=== PATIENT | male | born 1980 | race Caucasian/White ===

== ENCOUNTER 2018-11-25 13:37 | Emergency (ER) | payer OTHER, SELFPAY ==
[2018-11-25 13:40] VITALS: BP 121/75; PULSE 70; RESP 22; TEMP 36.7; O2SAT 100
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
[2018-11-25] MEDS: TRAMADOL 50 MG TABLET 100 MG PO (15:41)
[2018-11-25] MEDS: ACETAMINOPHEN 325 MG TABLET 650 MG PO (15:41)
[2018-11-25 16:01] VITALS: BP 114/80; PULSE 54; RESP 16; TEMP 36.6; O2SAT 100
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
== END 2018-11-25 16:08 | disposition home or self-care (01) ==
PROVIDERS: Emergency Provider Emergency Medicine
DX: S22.32XA Fracture of one rib, left side, initial encounter for closed fracture (principal); W19.XXXA Unspecified fall, initial encounter
CPT/HCPCS: 71101; 99282; 99283

== ENCOUNTER 2019-08-26 18:47 | Emergency (ER) | payer OTHER, SELFPAY ==
[2019-08-26 18:58] VITALS: BP 133/84; PULSE 67; RESP 16; TEMP 36.7; O2SAT 96; BMI 31.0
--- NOTE | 2019-08-26 19:57 | ED_ITS ---
HPI - Head Injury General Chief complaint: Head Injury Stated complaint: head injury Time Seen by Provider: 08/26/19 19:57 Source: patient Mode of arrival: Ambulatory Limitations: no limitations History of Present Illness HPI Narrative: 38-year-old male nonsmoker without pertinent past medical history presents with a head injury suffered a few hours ago. He stood up quickly and hit his head on a steel bar. He denies any loss of consciousness nor focal neurologic findings. He denies any neck or back pain. He is not take blood thinners and denies the use of alcohol or street drugs. He is nauseated but denies any vomiting. He denies any other injury. He does have some mild headache. His states he is acting at baseline. He suffered a superficial abrasion on the top of his head which is no longer bleeding. MD Complaint: head injury Onset (ago): hour(s) Mechanism of Injury: other Place: home Loss of Consciousness: no Location of injury: parietal Severity: mild Quality: aching Radiation: none Other Injuries: none Associated symptoms: nausea Related Data Previous Rx's Medication Instructions Recorded tramadol [Ultram] 100 mg PO Q6H PRN #30 tab 11/25/18 Allergies Allergy/AdvReac Type Severity Reaction Status Date / Time terbinafine [From LAMISIL] Allergy Intermediate Verified 08/26/19 18:58 Review of Systems Constitutional Constitutional: Denies chills, Denies fatigue, Denies fever(s), Denies frequent falls, Reports headache(s), Denies lethargy and Denies weakness Eyes Eyes: Denies change in vision, Denies eye discharge, Denies irritation and Denies loss of vision ENT Ears, Nose, Mouth, and Throat: Denies change in voice, Denies dizziness, Reports headache(s), Denies neck pain, Denies sore throat and Denies throat swelling Cardiovascular Cardiovascular: Denies chest pain, Denies irregular heart rhythm, Denies lightheadedness, Denies palpitations, Denies dyspnea, Denies dyspnea on exertion and Denies orthopnea Respiratory Respiratory: Denies cough, Denies dyspnea, Denies dyspnea on exertion and Denies wheezing Gastrointestinal Gastrointestinal: Denies abdominal pain, Denies change in bowel habits, Denies diarrhea, Denies nausea and Denies vomiting Genitourinary Genitourinary: Denies hematuria, Denies flank pain, Denies urinary incontinence and Denies urinary urgency Musculoskeletal Musculoskeletal: Denies back pain, Denies muscle weakness, Denies neck pain, Denies numbness and Denies tingling Integumentary/Breasts Skin/Breast: Denies pruritus, Denies erythema, Denies rash and Reports wounds Neurologic Neurologic: Denies behavioral changes, Denies confusion, Denies dizziness, Denies frequent falls, Reports headache(s), Denies loss of vision, Denies numbness, Denies tingling and Denies weakness Psychiatric Psychiatric: Denies anxiety, Denies behavioral changes, Denies confusion, Denies depression, Denies homicidal ideation and Denies suicidal ideation Endocrine Endocrine: Denies fatigue, Denies flushing and Denies palpitations Hematologic/Lymphatic Hematologic/Lymphatic: Denies easy bruising Allergic/Immunologic Allergic/Immunologic: Denies urticaria, Denies throat swelling and Denies wheezing Patient History Medical History Healthy adult (Acute) Surgical History No pertinent past surgical history (Acute) Social History Smoking Status: Never smoker Smoking Status: Never smoker Exam Narrative Exam Narrative: GENERAL: [38] year old patient appears stated age. Well- nourished, well-developed patient, in mild distress. GCS 15 HEAD: Superficial abrasion, no bleeding. No evidence of depressed skull fracture. EYES: Pupils equal round and reactive. Extraocular motions intact. No scleral icterus. No injection or drainage. ENT: Nose without bleeding, purulent drainage. Throat without erythema, tonsillar hypertrophy or exudate. Airway patent. NECK: Trachea midline. Non tender CARDIOVASCULAR: Regular rate and rhythm without murmurs, gallops, or rubs. RESPIRATORY: Clear to auscultation. Breath sounds equal bilaterally. No wheezes, rales, or rhonchi. GASTROINTESTINAL: Abdomen soft, non-tender, nondistended. EXTREMITIES: No edema or joint tenderness. BACK: Nontender without deformity or crepitance. No flank tenderness. NEURO: AOx3. SKIN: No rash or erythema of visible areas Initial Vital Signs Initial Vital Signs: Vital Signs Temperature 98.0 F 08/26/19 18:58 Pulse Rate 67 08/26/19 18:58 Respiratory Rate 16 08/26/19 18:58 Blood Pressure 133/84 08/26/19 18:58 Pulse Oximetry 96 08/26/19 18:58 Course Course Course Narrative: [place] CT Head Injury/Trauma Rule from [employer] on 08/27/2019 All calculations should be rechecked by clinician prior to use RESULT SUMMARY: CT Unnecessary The [place] Head CT Rule suggests a head CT is not necessary for this patient (sensitivity 83-100% for all intracranial traumatic findings, sensitivity 100% for findings requiring neurosurgical intervention). INPUTS: Age ?> 0 = No Patient on blood thinners ?> 0 = No Seizure after injury ?> 0 = No GCS ?> 0 = No Suspected open or depressed skull fracture ?> 0 = No Any sign of basilar skull fracture? ?> 0 = No ?2 episodes of vomiting ?> 0 = No Age ?63 years ?> 0 = No Retrograde amnesia to the event ? 30 minutes ?> 0 = No ?Dangerous? mechanism? ?> 0 = No Vital Signs Vital signs: Vital Signs - 8 hr 08/26/19 18:58 Temperature 98.0 F Pulse Rate 67 Respiratory Rate 16 Blood Pressure 133/84 Pulse Oximetry 96 Discharge Plan Departure Patient Disposition: Home Clinical Impression: Concussion without loss of consciousness Qualifiers: Encounter type: initial encounter Qualified Code(s): S06.0X0A - Concussion without loss of consciousness, initial encounter Discharge Date/Time: 08/26/19 20:12 Instructions: Concussion Activity Restrictions/Additional Instructions: You have a slight concussion and will likely have a mild headache and some nausea for a few days. Avoiding highly stimulating activities and even TV or computers may be helpful in minimizing your symptoms. Avoid activities that will put you at risk for another head injury for at least a week. You can take tylenol or motrin for headache. Return for worsening or persistent symptoms Prescriptions: No Action tramadol [Ultram] 50 mg tablet 100 mg PO Q6H PRN (Reason: pain) Qty: 30 RF: 0 Stand Alone Forms: Work Release Note
== END 2019-08-26 20:12 | disposition home or self-care (01) ==
PROVIDERS: Emergency Provider Emergency Medicine
DX: S06.0X0A Concussion without loss of consciousness, initial encounter (principal); W22.8XXA Striking against or struck by other objects, initial encounter
CPT/HCPCS: 99281

== ENCOUNTER 2020-03-14 21:17 | Emergency (ER) | payer OTHER, SELFPAY ==
[2020-03-14 21:28] VITALS: BP 135/82; PULSE 60; RESP 18; TEMP 36.6; O2SAT 98
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
[2020-03-14] MEDS: KETOROLAC 60 MG/2 ML VIAL 30 MG IM (21:50)
[2020-03-14] MEDS: CYCLOBENZAPRINE 10 MG PREPACK 1 BOTTLE MISC (21:50)
[2020-03-14] MEDS: HYDROCODONE/ACET 5/325 PREPACK 1 BOTTLE MISC (21:50)
== END 2020-03-14 22:35 | disposition home or self-care (01) ==
PROVIDERS: Emergency Provider Emergency Medicine
DX: S39.012A Strain of muscle, fascia and tendon of lower back, initial encounter (principal)
CPT/HCPCS: 96372; 99283; J1885

== ENCOUNTER 2020-04-17 17:38 | Emergency (ER) | payer OTHER, SELFPAY ==
[2020-04-17 17:44] VITALS: BP 140/93; PULSE 71; RESP 20; TEMP 36.4; O2SAT 100
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
[2020-04-17] MEDS: KETOROLAC 60 MG/2 ML VIAL 30 MG IM (18:31)
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
== END 2020-04-17 18:42 | disposition home or self-care (01) ==
PROVIDERS: Emergency Provider Nurse Practitioner
DX: S63.501A Unspecified sprain of right wrist, initial encounter (principal); S66.911A Strain of unspecified muscle, fascia and tendon at wrist and hand level, right hand, initial encounter
CPT/HCPCS: 73110; 96372; 99283; 99284; J1885

== ENCOUNTER 2020-10-15 13:19 | Emergency (ER) | payer OTHER, SELFPAY ==
[2020-10-15 13:26] VITALS: BP 156/92; PULSE 68; RESP 20; TEMP 36.4; O2SAT 99
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
[2020-10-15] MEDS: KETOROLAC 60 MG/2 ML VIAL 15 MG IV (15:00)
[2020-10-15 15:09] VITALS: BP 135/67; PULSE 65; RESP 20; O2SAT 99
== END 2020-10-15 15:09 | disposition home or self-care (01) ==
PROVIDERS: Emergency Provider Emergency Medicine
DX: S30.1XXA Contusion of abdominal wall, initial encounter (principal); V84.9XXA Unspecified occupant of special agricultural vehicle injured in nontraffic accident, initial encounter
CPT/HCPCS: 71260; 74177; 96374; 99284; J1885; Q9967

== ENCOUNTER 2021-07-17 08:17 | Emergency (ER) | payer OTHER, SELFPAY ==
[2021-07-17 08:20] VITALS: BP 116/62; PULSE 96; RESP 16; TEMP 37.7; O2SAT 96; BMI 31.3
--- NOTE | 2021-07-17 08:37 | ED.NAVMDI ---
HPI - Nausea/Vomiting/Diarrhea General Chief complaint: Nausea/Vomiting/Diarrhea Stated complaint: N/V/D, Trouble using right leg Time Seen by Provider: 07/17/21 08:25 Source: patient Mode of arrival: Ambulatory History of Present Illness HPI Narrative: 40-year-old gentleman with no significant medical issues presents with 24 hours of vomiting and diarrhea with diarrhea continuing. Had intermittent episodes with stomach issues for the last number of months and is wondering if she may be lactose intolerance. Did a little bit better with a couple days avoiding lactose in yesterday had a bowl of cereal with symptoms worsening. He also complains of pain in the lower extremities and when pressed on this it is joint pain bilaterally knees ankles. Also notes hip pain right greater than left has some chronic upper extremity issues with a chronic shoulder issue on the left and pain in that shoulder wrist and hand. Does note occasional pain in hands and toes. Has no family history for rheumatologic diagnoses. He has no specific skin changes or concerns that might suggest developing psoriasis. He describes no fevers, cough, chills. He has not been specifically gaining or losing weight, he is not having night sweats. He denies significant constipation. No chronic headaches no particularly dry skin or dry mouth or eyes. Related Data Previous Rx's Medication Instructions Recorded tramadol 50 mg tablet (Ultram) 100 mg PO Q6H PRN #30 tab 11/25/18 cyclobenzaprine 10 mg tablet 10 mg PO TID PRN #20 tab 03/14/20 hydrocodone 5 mg-acetaminophen 325 1 tab PO Q4-6H PRN #10 tab 03/14/20 mg tablet ([place]aines) Allergies Allergy/AdvReac Type Severity Reaction Status Date / Time terbinafine [From LAMISIL] Allergy Intermediate Verified 07/17/21 08:26 Review of Systems Review of Systems Narrative: Remainder of complete review of systems is otherwise unremarkable except for that included in the HPI. Patient History Medical History (Updated 07/17/21 @ 12:54 by Smiley Cota MD) Healthy adult Surgical History No pertinent past surgical history Social History Smoking Status: Never smoker Smoking Status: Never smoker alcohol intake frequency: holidays/special occasions only Substance Use Type: does not use Exam Narrative Exam Narrative: General: Healthy appearing, in no acute distress. Able to give a complete and coherent history. Well-nourished well-developed HEENT: Moist mucous membranes, normal sclera with reactive pupils, Neck: No JVD, supple Respiratory: Lungs are clear to auscultation, no wheezing no rales no rhonchi. Full and symmetrical air movement Cardiac: Regular rate and rhythm no murmurs no bruits Abdomen: Soft, mild diffuse tenderness without rebound or guarding, good bowel tones, no flank pain Skin: Warm and dry, no rashes Neurologic: Grossly neurologically intact with no obvious asymmetries or abnormalities Extremities: No trauma, well perfused. No active synovitis. Mild discomfort with manipulation of knees, ankles, right shoulder, left elbow. No hand pain noted today Psych: Cooperative, appropriate insight and affect Initial Vital Signs Initial Vital Signs: Vital Signs Temperature 99.8 F H 07/17/21 08:20 Pulse Rate 96 H 07/17/21 08:20 Respiratory Rate 16 07/17/21 08:20 Blood Pressure 116/62 07/17/21 08:20 Pulse Oximetry 96 07/17/21 08:20 Course Orders Ordered: ED Orders 07/17/21 09:35 CRP [C-Reactive Protein Quant] Stat Erythrocyte Sedimentation Rate Stat Tissue Transglutaminase IgA Routine Tissue Transglutaminase IgG Routine 07/17/21 09:36 Complete Blood Count AUTO DIFF Stat Comprehensive Metabolic Panel Stat Lipase Stat Magnesium Stat Procalcitonin Stat Discontinued Medications Sodium Chloride (Normal Saline 0.9%) 1,000 mls @ 1,000 mls/hr IV BOLUS ONE Stop: 07/17/21 10:34 Last Infusion: 07/17/21 12:12 Dose: 0 mls/hr Documented by: Admin: 07/17/21 10:06 Dose: 1,000 mls/hr Documented by: LADARIUS Ketorolac Tromethamine (Ketorolac 30 Mg/Ml Vial) 15 mg IV NOW ONE Stop: 07/17/21 09:36 Last Admin: 07/17/21 10:07 Dose: 15 mg Documented by: LADARIUS Ondansetron HCl (Ondansetron 4 Mg/2 Ml Inj) 4 mg IV NOW ONE Stop: 07/17/21 09:36 Last Admin: 07/17/21 10:06 Dose: 4 mg Documented by: LADARIUS Vital Signs Vital signs: Vital Signs - 8 hr 07/17/21 08:20 07/17/21 11:44 Temperature 99.8 F H Pulse Rate 96 H 79 Respiratory Rate 16 Blood Pressure 116/62 94/57 L Pulse Oximetry 96 97 MDM - Nausea/Vomiting/Diarrhea Lab Data Result diagrams: 07/17/21 09:36 07/17/21 09:36 Labs: Lab Results 07/17/21 07/17/21 07/17/21 Range/Units 09:35 09:35 09:36 WBC 6.2 (4.5-11.0) X10^3/uL RBC 4.76 (4.5-5.9) X10^6/uL Hgb 14.2 (13.5-17.5) g/dL Hct 41.0 (41-53) % MCV 86.2 (80-100) fL MCH 29.8 (26-34) PG MCHC 34.6 (30-36) % RDW 13.3 (11.6-14.8) % Plt Count 108 L (150-400) X10^3/uL Neut % (Auto) 84.9 H (50-75) % Lymph % (Auto) 5.9 L (25-40) % [place] % (Auto) 7.5 (3-14) % Eos % (Auto) 1.5 L (2-4) % Baso % (Auto) 0.2 (0-2) % Neut # (Auto) 5200 (2251-9535) /uL Lymph # (Auto) 400 L (3837-2921) /uL [place] # (Auto) 500 (0-900) /uL Eos # (Auto) 100 (0-450) /uL Baso # (Auto) 0 (0-100) /uL ESR 5 (0-15) MM/HR Sodium (137-145) mmol/L Potassium (3.4-5.1) mmol/L Chloride (98-107) mmol/L Carbon Dioxide (22-32) mmol/L BUN (9-20) mg/dL Creatinine (0.66-1.25) mg/dL Estimated GFR (>60) mL/min BUN/Creatinine Ratio (6-22) Glucose (70-100) mg/dL Calcium (8.4-10.2) mg/dL Magnesium (1.6-2.3) mg/dL Total Bilirubin (0.2-1.3) mg/dL AST (17-59) IU/L ALT (<50) IU/L Alkaline Phosphatase (38-126) U/L C-Reactive Protein 2.4 H (<1.0) mg/dL Total Protein (6.3-8.2) g/dL Albumin (3.5-5.0) g/dL Globulin (1.7-4.1) g/dL Albumin/Globulin Ratio (1.0-2.8) Lipase (23-300) U/L Procalcitonin (<0.5) ng/mL 07/17/21 Range/Units 09:36 WBC (4.5-11.0) X10^3/uL RBC (4.5-5.9) X10^6/uL Hgb (13.5-17.5) g/dL Hct (41-53) % MCV (80-100) fL MCH (26-34) PG MCHC (30-36) % RDW (11.6-14.8) % Plt Count (150-400) X10^3/uL Neut % (Auto) (50-75) % Lymph % (Auto) (25-40) % [place] % (Auto) (3-14) % Eos % (Auto) (2-4) % Baso % (Auto) (0-2) % Neut # (Auto) (6451-7715) /uL Lymph # (Auto) (4250-6013) /uL [place] # (Auto) (0-900) /uL Eos # (Auto) (0-450) /uL Baso # (Auto) (0-100) /uL ESR (0-15) MM/HR Sodium 136 L (137-145) mmol/L Potassium 3.8 (3.4-5.1) mmol/L Chloride 105 (98-107) mmol/L Carbon Dioxide 25 (22-32) mmol/L BUN 14 (9-20) mg/dL Creatinine 0.90 (0.66-1.25) mg/dL Estimated GFR > 60.0 (>60) mL/min BUN/Creatinine Ratio 15.6 (6-22) Glucose 111 H (70-100) mg/dL Calcium 8.5 (8.4-10.2) mg/dL Magnesium 1.9 (1.6-2.3) mg/dL Total Bilirubin 0.8 (0.2-1.3) mg/dL AST 31 (17-59) IU/L ALT 44 (<50) IU/L Alkaline Phosphatase 53 (38-126) U/L C-Reactive Protein (<1.0) mg/dL Total Protein 7.1 (6.3-8.2) g/dL Albumin 4.3 (3.5-5.0) g/dL Globulin 2.8 (1.7-4.1) g/dL Albumin/Globulin Ratio 1.5 (1.0-2.8) Lipase 59 (23-300) U/L Procalcitonin 0.36 (<0.5) ng/mL MDM Narrative Medical decision making narrative: Otherwise healthy 40-year-old gentleman with interesting complaints. Will begin workup and addresses acute nausea and vomiting pulmonary if he may have some type of autoimmune arthropathy developing possibility of rheumatoid arthritis, psoriatic arthritis, celiac disease are all possible. Will re-evaluate after blood work returns and fluid resuscitation. Lab work is reassuring. No dramatic electrolyte abnormalities or acute kidney injury with the diarrhea that he is currently experiencing. His C reactive protein is slightly elevated and this may be because of a viral etiology for the diarrhea however in light of the arthropathy possibility of an inflammatory arthropathy is certainly entertained. Antinuclear antibodies and immunoglobulins looking for celiac sprue are pending. Will ask him to follow-up with his primary care physician. At this point he is safe for home discharge Discharge Plan Departure Patient Disposition: Home Clinical Impression: Vomiting and diarrhea, Arthropathy Instructions: DI for Vomiting -- Adult Activity Restrictions/Additional Instructions: Thank you for coming in today Your labs are actually very reassuring. There is no evidence of significant electrolyte abnormalities, kidney function or liver function problems. I did not find any suggestion of acute infections Regarding the joint pain that you are having, the possibility of an inflammatory type arthritis needs to be further investigated. We did a nonspecific test in the emergency department called a CRP. This tests measures overall inflammation in your body. If your current vomiting and diarrhea is because of a low-grade virus effect explained the finding however this is also elevated with some of the reactive arthropathies. Some of the testing for rheumatoid arthritis as well as celiac sprue will take a number of days to come back. Please ask your primary care doctor to check on those labs. Please schedule an appointment with your primary care doctor for additional follow-up and if you are worse feel free to return to the emergency department Prescriptions: No Action tramadol [Ultram] 50 mg tablet 100 mg PO Q6H PRN (Reason: pain) Qty: 30 0RF cyclobenzaprine 10 mg tablet 10 mg PO TID PRN (Reason: muscle spasm) Qty: 20 0RF hydrocodone-acetaminophen [Gaines] 5-325 mg tablet 1 tab PO Q4-6H PRN (Reason: pain) Qty: 10 0RF
[2021-07-17] MEDS: SODIUM CHLORIDE 0.9% 1,000 ML 1000 ML IV (10:06)
[2021-07-17] MEDS: ONDANSETRON 4 MG/2 ML INJ IV (10:06)
[2021-07-17] MEDS: KETOROLAC 30 MG/ML VIAL 15 MG IV (10:07)
[2021-07-17 10:08] LABS: Add Manual Diff / Slide Review NO; Basophils Absolute Auto 0 /uL (0-100); Basophils Percent Auto 0.2 % (0-2); Eosinophils Absolute Auto 100 /uL (0-450); Eosinophils Percent Auto 1.5 % (2-4); Hemoglobin 14.2 g/dL (13.5-17.5); Lymphocytes Absolute Auto 400 /uL (1100-4500); Lymphocytes Percent Auto 5.9 % (25-40); Mean Corpuscular HGB Conc 34.6 % (30-36); Mean Corpuscular Hemoglobin 29.8 PG (26-34); Mean Corpuscular Volume 86.2 fL (80-100); Monocytes Absolute Auto 500 /uL (0-900); Monocytes Percent Auto 7.5 % (3-14); Neutrophils Absolute Auto 5200 /uL (1500-7000); Neutrophils Percent Auto 84.9 % (50-75); Platelet Count 108 X10^3/uL (150-400); Red Blood Cell Count 4.76 X10^6/uL (4.5-5.9); Red Cell Distribution Width 13.3 % (11.6-14.8); White Blood Cell Count 6.2 X10^3/uL (4.5-11.0)
[2021-07-17 10:23] LABS: Alanine Aminotransferase 44 IU/L (<50); Albumin 4.3 g/dL (3.5-5.0); Albumin Globulin Ratio 1.5 (1.0-2.8); Alkaline Phosphatase 53 U/L (38-126); Aspartate Aminotransferase 31 IU/L (17-59); BUN Creatinine Ratio 15.6 (6-22); Bilirubin Total 0.8 mg/dL (0.2-1.3); Blood Urea Nitrogen 14 mg/dL (9-20); Calcium 8.5 mg/dL (8.4-10.2); Carbon Dioxide 25 mmol/L (22-32); Chloride 105 mmol/L (98-107); Estimated Glomerular Filt Rate > 60.0 mL/min (>60); Globulin 2.8 g/dL (1.7-4.1); Glucose 111 mg/dL (70-100); HEMOLYSIS < 15 (0-50); Lipase 59 U/L (23-300); Magnesium 1.9 mg/dL (1.6-2.3); Potassium 3.8 mmol/L (3.4-5.1); Sodium 136 mmol/L (137-145); Total Protein 7.1 g/dL (6.3-8.2)
[2021-07-17 10:29] LABS: Erythrocyte Sedimentation Rate 5 MM/HR (0-15)
[2021-07-17 10:31] LABS: C-Reactive Protein Quant 2.4 mg/dL (<1.0)
[2021-07-17 10:39] LABS: Procalcitonin 0.36 ng/mL (<0.5)
[2021-07-17 11:44] VITALS: BP 94/57; PULSE 79; O2SAT 97
[2021-07-18 16:36] LABS: Tissue Transglutaminase IgA <2 U/mL (0-3); Tissue Transglutaminase IgG 3 U/mL (0-5)
[2021-07-19 17:51] LABS: ANA Screen, IFA Positive (.)
== END 2021-07-17 13:03 | disposition home or self-care (01) ==
PROVIDERS: Emergency Provider Emergency Medicine
DX: R11.2 Nausea with vomiting, unspecified (principal); R19.7 Diarrhea, unspecified; M12.9 Arthropathy, unspecified
CPT/HCPCS: 36415; 80053; 83516; 83690; 83735; 84145; 85025; 85651; 86038; 86140; 96361; 96374; 96375; 99284; J1885; J2405

== ENCOUNTER 2022-02-21 20:44 | Emergency (ER) | payer OTHER, SELFPAY ==
[2022-02-21 20:54] VITALS: BP 150/85; PULSE 65; RESP 18; TEMP 36.6; O2SAT 99; BMI 31.3
[2022-02-21] MEDS: TET,DIPH,PERTUSS(ACELL),VAC/PF 0.5 ML SYRINGE IM (20:57)
--- NOTE | 2022-02-21 22:01 | ED_ITS ---
HPI - Wound/Laceration General Chief Complaint: Wound/Laceration Stated Complaint: lt middle finger cut by metal Time Seen by Provider: 02/21/22 21:16 Source: patient Mode of arrival: Ambulatory History of Present Illness HPI narrative: 41-year-old gentleman with minimal past medical history presents after left his left middle finger mental that he was trying to cut. He is up-to-date on tetanus. Bleeding is controlled. He is neurovascularly intact. He has no other complaints or concerns today. Related Data Previous Rx's Medication Instructions Recorded tramadol 50 mg tablet (Ultram) 100 mg PO Q6H PRN pain #30 tabs 11/25/18 cyclobenzaprine 10 mg tablet 10 mg PO TID PRN muscle spasm #20 03/14/20 tabs hydrocodone 5 mg-acetaminophen 325 1 tab PO Q4-6H PRN pain #10 tabs 03/14/20 mg tablet ([place]) Allergies Allergy/AdvReac Type Severity Reaction Status Date / Time terbinafine [From LAMISIL] Allergy Intermediate Verified 07/17/21 08:26 Review of Systems Review of Systems Narrative: Remainder of complete review of systems is otherwise unremarkable except for that included in the HPI. Patient History Medical History (Updated 02/21/22 @ 23:59 by Smiley Cota MD) Healthy adult Surgical History No pertinent past surgical history Social History Smoking Status: Never smoker Smoking Status: Never smoker alcohol intake frequency: holidays/special occasions only Substance Use Type: does not use Exam Initial Vital Signs Initial Vital Signs: Vital Signs Temperature 98 F 02/21/22 20:54 Pulse Rate 65 02/21/22 20:54 Respiratory Rate 18 02/21/22 20:54 Blood Pressure 150/85 H 02/21/22 20:54 Pulse Oximetry 99 02/21/22 20:54 Oxygen Delivery Method 02/21/22 20:54 General: Alert appropriate in no acute distress Respiratory: Able to speak in full sentences, no obvious respiratory distress Skin: No obvious rashes, warm and dry Neurologic: Grossly intact no obvious asymmetries or abnormalities Psych: appropriate insight and affect, cooperative Extremity: 2 cm shallow flap like laceration distal phalanx on the palmar surface of the left middle finger. No nail or bone involvement. No retained fo reign bodies. Bleeding was controlled. Neurovascularly intact. Procedures Laceration Repair Left middle finger: Time of procedure: 23:30 Site: hand Side (If applicable): left Size (cm): 2 Description: flap and clean Depth: simple, single layer Local Anesthetic: lidocaine 1% and with bicarb Amount of anesthesia used (mL): 3 Pre-repair: wound explored, irrigated extensively and deep structures intact Skin layer closed with: nylon Skin layer suture size: 4-0 Number of sutures: 3 Technique: simple, interrupted Course Orders Ordered: Discontinued Medications Bacitracin (Bacitracin Oint 0.9 Gm Pckt) 1 applic TOP NOW ONE Stop: 02/21/22 22:10 Last Admin: 02/21/22 22:40 Dose: 1 applic Documented By: MARY Diphtheria/Tetanus/Acell Pertussis (Tet,Diph,Pertuss(Acell),Vac/Pf 0.5 Ml Syringe) 0.5 ml IM .ONCE ONE Stop: 02/21/22 20:55 Last Admin: 02/21/22 20:57 Dose: 0.5 ml Documented By: AMU Lidocaine HCl (Lidocaine 1% 20 Ml) 20 ml INJ INTRA-OP ONE Stop: 02/21/22 22:10 Last Admin: 02/21/22 22:40 Dose: Not Given Documented By: MARY Vital Signs Vital signs: Vital Signs - 8 hr 02/21/22 20:54 Temperature 98 F Pulse Rate 65 Respiratory Rate 18 Blood Pressure 150/85 H Pulse Oximetry 99 Oxygen Delivery Method Room Air MDM - Wound/Laceration MDM Narrative Medical decision making narrative: 41-year-old gentleman with a small flap-like laceration to the tip of his all left middle finger. Three sutures replaced without complication. Signs and symptoms of infection were reviewed with him. He is up-to-date on tetanus. Questions are answered he is safe for home discharge Discharge Plan Departure Patient Disposition: Home Clinical Impression: Finger laceration Instructions: DI for Minor Laceration Activity Restrictions/Additional Instructions: Thank you for coming in today You will need the stitches removed in approximately 7 days or February 28. You can return to the emergency department go to an urgent care or go to your regular primary care doctor's office for a nurse to take the sutures out for you. Please keep the area clean and dressed with antibiotic ointment and a Band-Aid. If he notice increasing redness, pain, odor or discharge, these are all signs of infection which I would not expect. Do see these, you need to have the wound re-evaluated immediately. If you find that you are getting worse or develop any new symptoms, please feel free to return to the emergency department for further evaluation. Prescriptions: No Action tramadol [Ultram] 50 mg tablet 100 mg PO Q6H PRN (Reason: pain) Qty: 30 0RF cyclobenzaprine 10 mg tablet 10 mg PO TID PRN (Reason: muscle spasm) Qty: 20 0RF hydrocodone-acetaminophen [[place]] 5-325 mg tablet 1 tab PO Q4-6H PRN (Reason: pain) Qty: 10 0RF Referrals: ProviderEarl [Primary Care Provider] - Visit Report Forms: Patient Portal/API
[2022-02-21] MEDS: LIDO 1%/SOD BICARB 8.4% (10ML) 10 ML SYRINGE (22:40)
[2022-02-21] MEDS: BACITRACIN OINT 0.9 GM PCKT 1 APPLIC TOP (22:40)
== END 2022-02-22 00:13 | disposition home or self-care (01) ==
PROVIDERS: Emergency Provider Emergency Medicine
DX: S61.213A Laceration without foreign body of left middle finger without damage to nail, initial encounter (principal); W26.8XXA Contact with other sharp object(s), not elsewhere classified, initial encounter; Z23 Encounter for immunization
CPT/HCPCS: 12001; 90471; 99283; 90715

== ENCOUNTER → 2023-05-11 17:12 | Outpatient (CLI) | payer OTHER, SELFPAY ==
[2023-05-11 19:01] LABS: Influenza A - CEPHEID Flu A NEGATIVE (NEGATIVE); Influenza B - CEPHEID Flu B NEGATIVE (NEGATIVE); Respiratory Syncytial Virus Negative (Negative)
[2023-05-11 19:02] LABS: COVID-19 CEPHEID 4-PLEX PCR Negative (Negative)
== END ==
PROVIDERS: Visit Provider Nurse Practitioner Family
DX: R05.9 Cough, unspecified (principal)
CPT/HCPCS: 0241U

== ENCOUNTER 2023-07-23 20:48 | Emergency (ER) | payer OTHER, SELFPAY ==
[2023-07-23 20:52] VITALS: BP 162/97; PULSE 72; RESP 18; TEMP 37.1; O2SAT 97; BMI 31.3
--- NOTE | 2023-07-23 21:09 | ED_ITS ---
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 He states that he was previously seen by Ophthalmology, who recommended surgery, but due to insurance referrals he has been unable to make a follow up appointment. He states that he has become extremely frustrated with his insurance company because he can not get any referrals or sees primary care physician to get appropriate follow up for his condition. He states that he has been using refresh eyedrops in sustained remission at night but it does not seem to be working anymore. He called the nursing line, who referred him to urgent Care, however urgent care was closed and so he came to the ER. Related Data Previous Rx's Medication Instructions Recorded tramadol 50 mg tablet (Ultram) 100 mg (2 x 50 mg) PO Q6H PRN pain 11/25/18 #30 tabs cyclobenzaprine 10 mg tablet 10 mg PO TID PRN muscle spasm #20 03/14/20 tabs hydrocodone 5 mg-acetaminophen 325 1 tab PO Q4-6H PRN pain #10 tabs 03/14/20 mg tablet ([place]) benzonatate 100 mg capsule 100 mg PO BID PRN cough #20 caps 05/11/23 Allergies Allergy/AdvReac Type Severity Reaction Status Date / Time terbinafine [From LAMISIL] Allergy Intermediate Verified 05/11/23 17:14 Review of Systems Review of Systems Narrative: Otherwise negative Patient History Medical History Healthy adult Surgical History No pertinent past surgical history Social History Smoking Status: Never smoker Smoking Status: Never smoker alcohol intake frequency: holidays/special occasions only Substance Use Type: does not use Exam Initial Vital Signs Initial Vital Signs: Vital Signs Temperature 98.7 F 07/23/23 20:52 Pulse Rate 72 07/23/23 20:52 Respiratory Rate 18 07/23/23 20:52 Blood Pressure 162/97 H 07/23/23 20:52 Pulse Oximetry 97 07/23/23 20:52 Oxygen Delivery Method Room Air 07/23/23 20:52 Const: Awake, alert, no acute distress, nontoxic appearing Eyes: PERRL, EOMI, conjunctiva normal, no fluorescein uptake, IOP OS 25, IOP OD 26 Neuro: AO x3, CN II-XII grossly intact, moves all extremities Psych: affect normal, mood normal, not suicidal, not homicidal Course Course Course Narrative: Patient with gradually worsening vision over the last several months, reported to have epithelial based membrane dystrophy, states that his symptoms are not well controlled with his current drops and ointments and he is concerned that he is going to lose his vision if this does not get addressed. There is no foreign body or fluorescein uptake on staining, intra-ocular pressures 25 and 26 respectively. Call placed to ophthalmology at [facility], who stated that while this does eventually need to be addressed, patient is not emergently at risk of losing his eyesight. Ophthalmology on-call recommended continuing drops and ointments and referral made to their clinic for follow up. Ophthalmology on-call did recommend in evaluation by Optometry within the next several days to recheck intra-ocular pressures and to perform a more thorough corneal exam that can not be obtained in the emergency department. Patient and his were informed of ophthalmology recommendations including follow up at [facility] as well as the recommendation to follow up with Optometry within the next several days for in-depth corneal assessment. Patient and expressed understanding of plan and in agreement at this time. All questions answered at time of discharge. Orders Ordered: Discontinued Medications Fluorescein Sodium (Fluorescein 1 Mg Strip) 1 mg EYE-BOTH NOW ONE Stop: 07/23/23 21:10 Last Admin: 07/23/23 21:47 Dose: 1 mg Documented By: ISHAAN Proparacaine HCl (Proparacaine 0.5% Ophth Kristin) 1 drops EYE-BOTH NOW ONE Stop: 07/23/23 21:10 Last Admin: 07/23/23 21:47 Dose: 1 drop Documented By: ISHAAN Vital Signs Vital signs: Vital Signs - 8 hr 07/23/23 20:52 07/23/23 22:42 Temperature 98.7 F 98.6 F Pulse Rate 72 66 Respiratory Rate 18 18 Blood Pressure 162/97 H 138/81 Pulse Oximetry 97 98 Oxygen Delivery Method Room Air Room Air MDM - Eye Problem Differential Diagnosis Differential diagnosis: Likely corneal abrasion, conjunctivitis and acute iritis Discharge Plan Departure Patient Disposition: Home 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 In the next several days please follow up with an visual specialist for repeat eye pressure exam and comprehensive corneal exam. This was recommended by the on- call [employer] consultant at [facility]. In addition you have been provided with the number to the eye Clinic, please call to arrange a follow up appointment. Prescriptions: No Action benzonatate 100 mg capsule 100 mg PO BID PRN (Reason: cough) Qty: 20 0RF tramadol [Ultram] 50 mg tablet 100 mg PO Q6H PRN (Reason: pain) Qty: 30 0RF cyclobenzaprine 10 mg tablet 10 mg PO TID PRN (Reason: muscle spasm) Qty: 20 0RF hydrocodone-acetaminophen [[place]] 5-325 mg tablet 1 tab PO Q4-6H PRN (Reason: pain) Qty: 10 0RF Referrals: ProviderEarl [Primary Care Provider] - Stand Alone Forms: Patient Portal/API
[2023-07-23] MEDS: PROPARACAINE 0.5% OPHTH SOL 1 DROPS EYE-BOTH (21:47)
[2023-07-23] MEDS: FLUORESCEIN 1 MG STRIP EYE-BOTH (21:47)
[2023-07-23 22:42] VITALS: BP 138/81; PULSE 66; RESP 18; TEMP 37; O2SAT 98
== END 2023-07-23 22:42 | disposition home or self-care (01) ==
PROVIDERS: Emergency Provider Emergency Medicine
DX: H18.52 Epithelial (juvenile) corneal dystrophy (principal)
CPT/HCPCS: 99282

== ENCOUNTER 2024-09-12 19:25 | Emergency (ER) | payer OTHER, SELFPAY ==
[2024-09-12] VITALS (16 sets, daily range): BP systolic 114–157; BP diastolic 72–104; PULSE 66–87; RESP 9–22; TEMP 37.1; O2SAT 93–99; BMI 32.1
--- NOTE | 2024-09-12 19:39 | DI.CT.S_ITS ---
PROCEDURE: CT CHEST ABD PEL W CON INDICATIONS: left sided rib and sternum pain s/p trauma TECHNIQUE: After the administration of intravenous contrast, 5 mm thick sections acquired from the lung apices to the symphysis. 2.5 mm thick coronal and sagittal reformats were acquired. Additional 7 mm thick coronal maximum intensity projection (MIP) reformats acquired through the lungs. Optional 10-minute delayed imaging may be performed from the kidneys to the bladder. For radiation dose reduction, the following was used: automated exposure control, adjustment of mA and/or kV according to patient size. COMPARISON: [facility], CT, CT CHEST ABD PEL W CON, 10/15/2020, 14:10. FINDINGS: Image quality: Diagnostic. CHEST: Lower Neck: No enlarged lymph nodes. Thyroid: No thyroid nodules which require sonographic evaluation. Axillae: No enlarged lymph nodes. Chest Wall: No subcutaneous gas. Lungs and Pleura: Mild dependent atelectasis in posterior aspect of bilateral lung rogers are seen. No pulmonary contusions or lacerations. No acute airspace opacities. No pneumothorax or hemothorax. Mediastinum: No mediastinal hematomas. Heart size is normal. No pericardial effusion. Thoracic aorta and pulmonary arteries demonstrate normal size and enhancement. No mediastinal or hilar adenopathy. Esophagus is normal in caliber. No hiatal hernia. ABDOMEN: Liver: No lacerations. Gallbladder: No radiopaque gallstones or wall thickening. Biliary ducts: No biliary dilation. Pancreas: Homogenous enhancement. Spleen: Homogenous enhancement without laceration or hematoma. Adrenal Glands: Symmetric enhancement. Kidneys and Ureters: Symmetric enhancement. No hydronephrosis. No solid mass. No complex renal cystic lesion which requires follow up. Stomach and Bowel: Normal colonic caliber, without significant wall thickening. No abscess collection. Appendix is visualized and is within normal limits. Peritoneum: No abnormal intraperitoneal fluid. No free air. Ventral Wall: No hernia. Abdominal Nodes: No retroperitoneal or mesenteric adenopathy by size criteria. Vessels: Aorta and inferior vena cava are normal in size. PELVIS: Pelvic Organs: Unremarkable. Bladder: Normal thickness. Pelvic Nodes: No enlarged lymph nodes. Miscellaneous: No inguinal hernias are seen. Bones: No aggressive appearing bony lesions. Pelvic ring and hip joints appear intact. No displaced rib fractures. Sternum is intact. No acute vertebral body compression fracture or spondylolisthesis. IMPRESSION: 1. No evidence of traumatic injury to the chest, abdomen or pelvis. 2. No displaced rib fractures. No acute sternal fracture. Dictated by: Bonilla Acosta M.D. on 09/12/2024 at 20:28 Approved by: Bonilla Acosta M.D. on 09/12/2024 at 20:31
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
[2024-09-12 19:52] LABS: Add Manual Diff / Slide Review NO; Basophils Absolute Auto 100 /uL (0-100); Basophils Percent Auto 1.5 % (0-2); Eosinophils Absolute Auto 200 /uL (0-450); Eosinophils Percent Auto 2.3 % (2-4); Hematocrit 42.8 % (41-53); Lymphocytes Absolute Auto 2100 /uL (1100-4500); Lymphocytes Percent Auto 24.1 % (25-40); Mean Corpuscular Volume 85.8 fL (80-100); Monocytes Absolute Auto 800 /uL (0-900); Neutrophils Absolute Auto 5600 /uL (1500-7000); Neutrophils Percent Auto 63.1 % (50-75); Platelet Count 145 X10^3/uL (150-400); Red Blood Cell Count 4.99 X10^6/uL (4.5-5.9); Red Cell Distribution Width 13.2 % (11.6-14.8); White Blood Cell Count 8.9 X10^3/uL (4.5-11.0)
--- NOTE | 2024-09-12 19:54 | DI.RAD.S_ITS ---
PROCEDURE: XR HAND RT MIN 3V INDICATIONS: pain s/p trauma TECHNIQUE: 3 views of the hand(s) acquired. COMPARISON: None. FINDINGS: Bones: No fractures or dislocations. Carpal bones are normally aligned. No suspicious bony lesions. Soft tissues: No suspicious soft tissue calcifications. IMPRESSION: No acute right hand fracture or dislocation. Dictated by: Bonilla Acosta M.D. on 09/12/2024 at 20:32 Approved by: Bonilla Acosta M.D. on 09/12/2024 at 20:33
[2024-09-12 19:56] LABS: INR 1.1 (0.9-1.3)
[2024-09-12 19:58] LABS: PTT Partial Thromboplastin Tim 31 SECONDS (25.1-36.5)
[2024-09-12 20:00] LABS: Lactate (Lactic Acid) 1.9 mmol/L (0.7-2.1)
[2024-09-12 20:01] LABS: Alanine Aminotransferase 58 IU/L (<50); Albumin 4.8 g/dL (3.5-5.0); Albumin Globulin Ratio 1.6 (1.0-2.8); Alkaline Phosphatase 61 U/L (38-126); Aspartate Aminotransferase 50 IU/L (17-59); BUN Creatinine Ratio 9.7 (6-22); Bilirubin Total 0.6 mg/dL (0.2-1.3); Blood Urea Nitrogen 10 mg/dL (9-20); Calcium 9.6 mg/dL (8.4-10.2); Carbon Dioxide 24 mmol/L (22-32); Chloride 105 mmol/L (98-107); Creatine Kinase 444 U/L (55-170); Estimated Glomerular Filt Rate > 60 mL/min (>60); Glucose 92 mg/dL (70-100); HEMOLYSIS < 15 (0-50); Lipase 64 U/L (23-300); Potassium 4.1 mmol/L (3.4-5.1); Sodium 140 mmol/L (137-145); Total Protein 7.8 g/dL (6.3-8.2)
[2024-09-12] MEDS: ONDANSETRON 4 MG/2 ML INJ IV (20:06)
[2024-09-12] MEDS: MORPHINE 4 MG/ML INJ IV (20:06)
[2024-09-12] MEDS: SODIUM CHLORIDE 0.9% 1,000 ML 1000 ML IV (20:07)
[2024-09-12 20:13] LABS: Troponin I < 0.012 ng/mL (0.01-0.034)
== END 2024-09-12 22:50 | disposition home or self-care (01) ==
PROVIDERS: Emergency Provider Student in an Organized Health Care Education/Training Program
DX: S20.212A Contusion of left front wall of thorax, initial encounter (principal); S09.90XA Unspecified injury of head, initial encounter; R07.9 Chest pain, unspecified; M54.2 Cervicalgia; M79.641 Pain in right hand; V86.92XA Unspecified occupant of snowmobile injured in nontraffic accident, initial encounter
CPT/HCPCS: 36415; 70450; 71260; 72125; 73130; 74177; 80053; 82550; 83605; 83690; 83735; 84484; 85025; 85610; 85730; 96361; 96374; 96375; 99284; 99285; J2270; J2405

== ENCOUNTER → 2025-04-21 10:32 | Outpatient (CLI) | payer OTHER, SELFPAY ==
--- NOTE | 2025-04-21 10:33 | DI.MRI.S_ITS ---
PROCEDURE: MR LUMBAR SPINE WO CON INDICATIONS: LOW BACK PAIN TECHNIQUE: Noncontrast sagittal T1 spin echo and T2 fast echo, sagittal STIR, and T2 fast spin echo through the lumbar spine. In cases with scoliosis, additional coronal T2 fast spin echo may be performed. COMPARISON: None. FINDINGS: Image quality: Excellent. Alignment and Curvature: There is normal bony alignment. Bone Marrow: Marrow is of normal overall signal. No acute vertebral body compression fractures. Spinal Cord: Conus medullaris terminates at the L1 level. Visualized cord demonstrates normal signal and size. Paraspinous Soft Tissues: No paravertebral masses. Discs: Mild desiccation is present L4-5. T12-L1: No disc bulge, spinal stenosis or foraminal narrowing. L1-L2: Minimal disc bulge without spinal stenosis or foraminal narrowing. L2-L3: Minimal disc bulge without spinal stenosis or foraminal narrowing. L3-L4: Mild disc bulge with minimal canal narrowing. Mild bilateral foraminal narrowing. L4-L5: Mild disc bulge with superimposed posterior central protrusion with what appears to be a very small extruded fragment. Severe spinal stenosis with canal compression. [id number] bilateral foraminal narrowing with facet and ligamentum flavum hypertrophy. L5-S1: No disc bulge or spinal stenosis. Minimal right foraminal narrowing. Facet and ligamentum flavum hypertrophy are present. IMPRESSION: Scattered disc bulges with small superimposed protrusion/extrusion at L4-5 and severe spinal stenosis. Dictated by: Michelle Sanchez M.D. on 04/22/2025 at 14:49 Approved by: Michelle Sanchez M.D. on 04/22/2025 at 14:54
== END ==
LOC: MRI 10:32
PROVIDERS: Referring Provider Nurse Practitioner Family; Visit Provider Nurse Practitioner Family
DX: M51.369 Other intervertebral disc degeneration, lumbar region without mention of lumbar back pain or lower extremity pain (principal); M48.061 Spinal stenosis, lumbar region without neurogenic claudication; M47.816 Spondylosis without myelopathy or radiculopathy, lumbar region; M47.817 Spondylosis without myelopathy or radiculopathy, lumbosacral region; M54.50 Low back pain, unspecified
CPT/HCPCS: 72148

== ENCOUNTER → 2025-05-06 10:00 | Outpatient (CLI) | payer OTHER, SELFPAY ==
--- NOTE | 2025-05-06 10:01 | DI.RAD.S_ITS ---
PROCEDURE: XR LUMBAR SPINE MIN 4V INDICATIONS: BACK PAIN TECHNIQUE: 5 views of the lumbar spine were acquired, including bilateral oblique views. COMPARISON: None. FINDINGS: Bones: 5 nonrib-bearing vertebrae are present. There is normal bony alignment. No vertebral body compression fractures. No suspicious bony lesions. Mild disc space narrowing at L4-5 and L5-S1. Mild bilateral facet arthrosis at L4-5 and L5-S1. Soft tissues: Overlying bowel gas pattern is normal. No suspicious soft tissue calcifications. Oblique images: No pars defects. IMPRESSION: No acute osseous abnormality. Mild spondylosis in the inferior lumbar spine. No pars defect. Dictated by: Scar Vinson M.D. on 05/06/2025 at 10:32 Approved by: Scar Vinson M.D. on 05/06/2025 at 10:33
== END ==
PROVIDERS: Referring Provider Physical Medicine & Rehabilitation; Visit Provider Physical Medicine & Rehabilitation
DX: M47.816 Spondylosis without myelopathy or radiculopathy, lumbar region (principal); M47.817 Spondylosis without myelopathy or radiculopathy, lumbosacral region; M54.9 Dorsalgia, unspecified
CPT/HCPCS: 72110

== ENCOUNTER 2025-06-02 21:28 | Emergency (ER) | payer OTHER, SELFPAY ==
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
[2025-06-02 21:35] VITALS: BP 153/88; PULSE 65; RESP 16; TEMP 36.6; O2SAT 98; BMI 31.8
--- NOTE | 2025-06-02 21:38 | DI.US.S_ITS ---
PROCEDURE: US PERIPH VENOUS LOW EXTREM BI INDICATIONS: Bilateral lower extremity swelling pain TECHNIQUE: Real-time imaging, as well as color and pulse Doppler interrogation, were performed of the deep veins of both legs from the inguinal ligament to the popliteal fossa, with documentation of the visualized calf veins. COMPARISON: None. FINDINGS: Right: The common femoral, femoral, popliteal, and the visualized calf veins are normally compressible, and free of intraluminal thrombus. Color and pulse Doppler demonstrate normal phasic intravascular flow. There is normal augmentation response to distal compression maneuver. Left: The common femoral, femoral, popliteal, and the visualized calf veins are normally compressible, and free of intraluminal thrombus. Color and pulse Doppler demonstrate normal phasic intravascular flow. There is normal augmentation response to distal compression maneuver. IMPRESSION: No findings of deep venous thrombosis in either lower extremity. Approved by: Jacey Fiore M.D.,Ph.D. on 06/02/2025 at 23:32
[2025-06-02 22:51] LABS: Add Manual Diff / Slide Review NO; Hematocrit 39.7 % (41-53); Hemoglobin 13.8 g/dL (13.5-17.5); Lymphocytes Absolute Auto 1900 /uL (1100-4500); Mean Corpuscular HGB Conc 34.8 % (30-36); Mean Corpuscular Hemoglobin 29.9 PG (26-34); Mean Corpuscular Volume 86.1 fL (80-100); Platelet Count 146 X10^3/uL (150-400)
[2025-06-02 23:01] LABS: INR 1.0 (0.9-1.3); Prothrombin Time 11.4 SECONDS (9.4-12.5)
[2025-06-02 23:03] LABS: PTT Partial Thromboplastin Tim 28 SECONDS (25.1-36.5)
[2025-06-02 23:06] LABS: Alanine Aminotransferase 55 IU/L (<50); Albumin 4.3 g/dL (3.5-5.0); Albumin Globulin Ratio 1.5 (1.0-2.8); Alkaline Phosphatase 52 U/L (38-126); Blood Urea Nitrogen 13 mg/dL (9-20); Calcium 8.8 mg/dL (8.4-10.2); Carbon Dioxide 27 mmol/L (22-32); Chloride 104 mmol/L (98-107); Estimated Glomerular Filt Rate > 60 mL/min (>60); Globulin 2.8 g/dL (1.7-4.1); Glucose 96 mg/dL (70-99); HEMOLYSIS < 15 (0-50); Potassium 3.8 mmol/L (3.4-5.1); Sodium 138 mmol/L (137-145); Total Protein 7.1 g/dL (6.3-8.2)
[2025-06-03 00:09] VITALS: BP 135/85; PULSE 64; RESP 18; O2SAT 98
== END 2025-06-03 00:05 | disposition home or self-care (01) ==
PROVIDERS: Emergency Provider Student in an Organized Health Care Education/Training Program
DX: S80.12XA Contusion of left lower leg, initial encounter (principal); M79.605 Pain in left leg; X58.XXXA Exposure to other specified factors, initial encounter
CPT/HCPCS: 80053; 85025; 85610; 85730; 93970; 99281; 99284

== ENCOUNTER 2025-06-23 14:40 | Outpatient (CLI) | payer OTHER, SELFPAY ==
[2025-06-23] VITALS (8 sets, daily range): BP systolic 120–133; BP diastolic 73–83; PULSE 63–76; RESP 14–22; TEMP 37.2; O2SAT 96–100
[2025-06-23] MEDS: MIDAZOLAM 2 MG/2 ML VIAL IV (16:34)
[2025-06-23] MEDS: BETAMETHASONE 30 MG/5 ML MDV 12 MG INJ (16:38)
--- NOTE | 2025-06-23 16:50 | PM.PROC.IR.1 ---
Date/Time/Diagnoses Date of procedure: 06/23/25 Time of procedure: 16:50 Pre-procedure diagnosis: 1. FORAMINAL STENOSIS WITH LE SYMPTOMS Procedure Notes Procedure: 1. FLUOROSCOPICALLY GUIDED CONTRAST CONTROLLED TRANSFORAMINAL EPIDURAL STEROID INJECTION - BILATERAL L4/5 TFESI Indications: Moe is referred for treatment of Foraminal Stenosis with bilateral LE Symptoms Physician: Lincoln Hylton Total Fluoroscopy time (seconds): 14 Total sedation minutes: 14 Complications: none Procedure in detail & Post-procedure care: FINDINGS Foraminal Nerve Root Compression secondary to disc disease and facet hypertrophy DESCRIPTION OF PROCEDURE Following review of allergy and review of potential side effects and complications, including, but not necessarily limited to, infection, allergic reaction, local tissue breakdown, stroke, temporary or permanent nerve injury, paralysis, and possible , the patient indicated that the patient understood and agreed to proceed. An informed consent document was signed by the patient, witnessed by a nurse, and placed in the patient's chart. Additionally, other treatment options including medications, modalities, and physical therapy were reviewed with the patient. After review of previous anaesthesic history and IV conscious sedation the patient was deemed safe to proceed with today?s procedure with IV conscious sedation as ASA class II designation. Safety time-out was performed to confirm patient ID, procedure to be performed and site of procedure. IV sedation was accomplished with a combination of 2mg of Versed was administered by the RN after DO order, titrated to patient comfort during the course of the procedure while the patient remained responsive to all verbal commands In the prone position following sterile prep and drape of the lumbar region, the right L4/5 posterior neuroforamen was identified fluoroscopically. The skin was anesthetized via a 25-gauge 1.5-inch needle with 1% lidocaine solution. At this point, a 25-gauge 3.5-inch spinal needle was atraumatically introduced and advanced under fluoroscopic guidance through the posterior right L4/5 neuroforamen to approximately the anterior aspect of the canal. Depth was confirmed on lateral view. Following negative aspiration, injection of approximately 1.5cc of Isovue 200 under live fluoroscopy in the AP view confirmed excellent flow along the nerve root, into the epidural space without vascular or intrathecal uptake observed Radiological data, including multiple fluoroscopic views of the lumbosacral spine, reveal a spinal needle at the right L4/5 posterior neuroforamen. Subsequent views show flow of contrast material flowing superiorly and inferiorly along the nerve root confirming epidural flow. Subsequently, a test dose of 1.5cc of 1% lidocaine solution was administered and patient was observed for two minutes for signs or symptoms of complications, including abdominal pain, shortness of breath, bilateral upper or lower extremity weakness, nausea and vomiting, prior to steroid injection. At this point, a total of 2cc or 10mg of dexamethasone and 6mg betamethasone was injected without incident. Attention was then refocused to the left L4/5 level where the identical procedure was replicated. The procedure tolerated the procedure well without signs or symptoms of complications prior to transfer to the recovery area continued monitoring without incident. The patient was then transferred to the recovery area where they were observed for an appropriate time after the injection. The patient reported a VAS score of 7 prior to the procedure and a post-procedure VAS of 1. POST OP INSTRUCTIONS The patient was provided a Pain Log to continue to record their response to the target-specific procedure prior to follow-up visit with their referring physician. Additionally, specific post-injection care instructions and a contact number to our office were provided if concerns arise regarding possible complications associated with the procedure are suspected.
== END 2025-06-23 17:27 | disposition home or self-care (01) ==
PROVIDERS: Referring Provider Physical Medicine & Rehabilitation; Visit Provider Physical Medicine & Rehabilitation
DX: M48.061 Spinal stenosis, lumbar region without neurogenic claudication (principal); M51.16 Intervertebral disc disorders with radiculopathy, lumbar region; M47.26 Other spondylosis with radiculopathy, lumbar region
CPT/HCPCS: 64483; 99152; J0702; J1100; J2250